=== PATIENT | female | born 1965 | race Caucasian/White ===

== ENCOUNTER → 2016-09-26 | Outpatient (REF) | payer BC, OTHER | LOC: M SFHCWAGY 15:10 | PROVIDERS: ATTEND Nurse Practitioner Family | DX: Z01.419 Encounter for gynecological examination (general) (routine) without abnormal findings (principal) ==

== ENCOUNTER → 2016-09-26 | Outpatient (CLI) | payer BC, OTHER ==
--- NOTE | 2016-09-26 20:33 | REPMRS ---
Patient History The patient states she had a clinical breast exam in 09/2016. Patient is postmenopausal, has history of other cancer at age 34, and had first child at age 32. Family history of breast cancer in paternal aunt. Digital Woman Screen Mammo: September 26, 2016 - Exam #: [id number] Bilateral CC and MLO view(s) were taken. Technologist: Dorothea Wagner, Technologist Prior study comparison: January 28, 2015, digital woman screen mammo performed at [facility]. November 29, 2010, digital bilateral screening mammo performed at [facility] to [facility]. FINDINGS: There are scattered fibroglandular densities. There has been no change in the appearance of the mammogram from the prior studies. There is a mild amount of scattered fibroglandular density which is fairly symmetric. There is no interval development of dominant mass, architectural distortion, or clustered microcalcification suggestive of malignancy. ASSESSMENT: BI-RADS/ACR category 1 mammogram. Negative. Recommendation Routine screening mammogram in 1 year (for women over age 40). This mammogram was interpreted with the aid of an FDA-approved computer-aided dectection system. Electronically Signed By: Alberto Kuo MD 09/26/16 [id number]
--- NOTE | 2016-09-28 14:24 | DEXA ---
AP SPINE L1 - L4 1.259 0.5 0.8 LT FEMUR TOTAL 1.047 0.3 0.7 RT FEMUR TOTAL 1.085 0.6 1.0 TOTAL BODY TOTAL OTHER DUAL FEMUR FRAX* ASSESSMENT Risk factors: Premature menopause. 10 year probability of fracture Major osteoporotic fracture 3.6 % Hip fracture 0.1 % COMMENTS: Normal bone densitometry of the spine and hips. The density of the spine has decreased 5.7% since 06/19/2006. The density of the left hip has decreased 6.8% since 06/19/2006. The density of the right hip has decreased 6.5% since 06/19/2006. FOLLOW-UP: Recommendation for the next bone density exam: 5 years. PASCUAL
== END ==
LOC: M WHC 14:08
PROVIDERS: ATTEND Nurse Practitioner Family
DX: Z12.31 Encounter for screening mammogram for malignant neoplasm of breast (principal); E89.40 Asymptomatic postprocedural ovarian failure
CPT/HCPCS: 77080; G0202